=== PATIENT | male | born 1940 | race Caucasian/White ===

== ENCOUNTER → 2017-08-18 10:40 | Outpatient (CLI) | payer MEDICARE, OTHER, SELFPAY ==
[2017-08-18 11:17] LABS: Add Manual Diff / Slide Review NO; Basophils Percent Auto 0.5 % (0-2); Eosinophils Percent Auto 3.4 % (2-4); Hematocrit 41.9 % (41-53); Hemoglobin 14.1 g/dL (13.5-17.5); Lymphocytes Percent Auto 19.8 % (25-40); Mean Corpuscular HGB Conc 33.5 % (30-36); Mean Corpuscular Hemoglobin 32.3 PG (26-34); Mean Corpuscular Volume 96.5 fL (80-100); Monocytes Percent Auto 13.1 % (3-14); Neutrophils Absolute Auto 4500 /uL (3000-5900); Neutrophils Percent Auto 63.2 % (50-75); Platelet Count 195 X10^3/uL (150-400); Red Blood Cell Count 4.34 X10^6/uL (4.5-5.9); Red Cell Distribution Width 13.5 % (11.6-14.8); White Blood Cell Count 7.1 X10^3/uL (4.5-11.0)
[2017-08-18 12:00] LABS: Alanine Aminotransferase 20 IU/L (21-72); Albumin 4.1 g/dL (3.5-5.0); Albumin Globulin Ratio 1.3 (1.0-2.8); Alkaline Phosphatase 49 U/L (38-126); Aspartate Aminotransferase 25 IU/L (17-59); BUN Creatinine Ratio 22.5 (6-22); Bilirubin Total 0.5 mg/dL (0.2-1.3); Blood Urea Nitrogen 18 mg/dL (9-20); Calcium 9.6 mg/dL (8.4-10.2); Carbon Dioxide 30 mmol/L (22-32); Chloride 101 mmol/L (98-107); Estimated Glomerular Filt Rate > 60.0 mL/min (>60); Globulin 3.1 g/dL (1.7-4.1); Glucose 59 mg/dL (80-110); HEMOLYSIS < 15 (0-50); Lactate Dehydrogenase 633 U/L (313-618); Potassium 4.6 mmol/L (3.4-5.1); Sodium 140 mmol/L (137-145); Total Protein 7.2 g/dL (6.3-8.2)
== END ==
PROVIDERS: Family Provider Specialist; PCP Internal Medicine; Visit Provider Internal Medicine Hematology & Oncology
DX: C43.9 Malignant melanoma of skin, unspecified (principal); C79.49 Secondary malignant neoplasm of other parts of nervous system
CPT/HCPCS: 36415; 80053; 83615; 85025

== ENCOUNTER → 2017-09-13 11:09 | Outpatient (CLI) | payer MEDICARE, OTHER, SELFPAY ==
[2017-09-13 12:28] LABS: Estimated Glomerular Filt Rate > 60.0 mL/min (>60)
== END ==
PROVIDERS: PCP Internal Medicine; Visit Provider Radiology Radiation Oncology
DX: C79.31 Secondary malignant neoplasm of brain (principal)
CPT/HCPCS: 36415; 82565

== ENCOUNTER → 2017-09-20 10:24 | Outpatient (CLI) | payer MEDICARE, OTHER, SELFPAY ==
--- NOTE | 2017-09-20 | DI.MRI.S_ITS ---
PROCEDURE: MR HEAD/BRAIN WO/W CON INDICATIONS: MELANOMA TECHNIQUE: Noncontrast axial T1 spin echo, axial T2 fast spin echo, sagittal and axial FLAIR, coronal T2 fast spin echo, axial gradient echo, axial diffusion and ADC through the brain. After the administration of contrast, axial and coronal T1 spin echo with fat saturation through the brain. COMPARISON: [facility], MR, BRAIN W&WO CONTRAST, 05/31/2017, 9:34. [facility], MR, MR BRAIN W&WO CON, 09/14/2016, 15:03.[facility], MR, MR BRAIN W&WO CON, 08/04/2016, 19:36. [facility], MR, MR BRAINW CON, 08/04/2016, 12:34. [facility], MR, BRAIN W&WO CONTRAST, 07/20/2016, 15:11.[facility], RG, CT MAXILLOFACIAL W/O OUTSIDE FILMS, 07/19/2016, 15:31. [facility], [place], PET/CT SKULL BASE TO MID THIGH, 07/16/2016, 9:25. [facility], MR,BRAIN W&WO CONTRAST, 11/12/2016, 10:13. FINDINGS: Image quality: Excellent. CSF spaces: Basal cisterns are patent. No extra-axial fluid collections. Ventricles are normal in size and shape. Brain: Postsurgical changes compatible with resection of posterior right temporal metastatic lesion are stable. No abnormal intracranial mass or suspicious postcontrast enhancement identified in the current study. No new areas of suspicious postcontrast enhancement. Mild periventricular and subcortical white matter chronic microvascular ischemic changes stable. There is cerebral volume loss for age. There is periventricular white matter chronic small vessel ischemic change. The brainstem appears normal. Diffusion-weighted images demonstrate no acute ischemic insults. No areas of encephalomalacia. Normal intravascular flow voids are present. Skull and face: Calvarial marrow is normal in signal. Orbits appear normal. Sinuses: Sinuses and mastoids appear clear. IMPRESSION: 1. Stable examination compared to 05/31/2017. 2. No evidence of residual or recurrent posterior right temporal metastatic melanoma. 3. No new intracranial metastatic lesions identified. Dictated by: Lauren Erazo MD, PhD on 09/20/2017 at 10:45 Approved by: Lauren Erazo MD, PhD on 09/20/2017 at 11:05
--- NOTE | 2017-09-20 | DI.CT.S_ITS ---
PROCEDURE: CT SOFT TISSUE NECK WO CON INDICATIONS: MALIGNANT MELANOMA SURVEILLANCE TECHNIQUE: Non-contrast 3.0 mm axial sections acquired from the sella to the aortic arch. Additional oblique axial 3.0 mm sections acquired through the pharynx. 3 mm thick coronal and sagittal reformats were generated. For radiation dose reduction, the following was used: automated exposure control. COMPARISON: [facility], CT, CHEST/ABD/PEL WITHOUT CONTRAST, 05/19/2017, 10:15. [facility], CT, CT CHEST ABD PEL WO CON, 09/20/2017, 12:06. [facility], CT, NECK/CHEST/ABD/PEL W CONTRAST, 10/12/2016, 10:07. [facility], [place], PET/CT SKULL BASE TO MID THIGH, 11/29/2014, 11:10. FINDINGS: Image quality: Excellent. Lymph nodes: No enlarged lymph nodes seen throughout the neck. Vessels: Non-opacified vessels appear normal in caliber. Neck spaces: The oropharynx, nasopharynx, and pharynx demonstrate no mucosal lesions. The vocal cords, false vocal cords, pyriform sinuses, epiglottis, vallecula, and tongue base all appear normal. Extramucosal spaces appear unremarkable. Glands: The parotid and submandibular glands appear normal, without stones. Thyroid gland is within normal limits. Miscellaneous: Visualized brain and orbits appear normal. Reticulonodular interstitial thickening in lung apices is not significantly changed compared to prior examinations. Superficial soft tissues appear normal. Spine degenerative disc disease and facet arthropathy. IMPRESSION: 1. No evidence of metastatic disease involving the neck. 2. 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 3. Bilateral lung chronic interstitial disease. Dictated by: Lauren Erazo MD, PhD on 09/20/2017 at 15:41 Approved by: Lauren Erazo MD, PhD on 09/20/2017 at 15:56
--- NOTE | 2017-09-20 | DI.CT.S_ITS ---
PROCEDURE: CT CHEST ABD PEL WO CON INDICATIONS: MALIGNANT MELANOMA SURVEILLANCE TECHNIQUE: After the administration of oral contrast, 5 mm thick sections acquired from the lung apices to the symphysis pubis. 5 mm thick coronal and sagittal reformats acquired, with additional 7 mm coronal MIP reformats through the lungs. For radiation dose reduction, the following was used: automated exposure control, adjustment of mA and/or kV according to patient size. COMPARISON: [facility], CT, NECK/CHEST/ABD/PEL W CONTRAST, 10/12/2016, 10:07. [facility], CT, CHEST/ABD/PEL WITH CONTRAST, 11/23/2016, 10:10. [facility], CT, CHEST/ABD/PEL WITHOUT CONTRAST, 02/24/2017, 11:00. [facility], CT, CHEST/ABD/PEL WITHOUT CONTRAST, 05/19/2017, 10:15. [facility], CT, CT SOFT TISSUE NECK WO CON, 09/20/2017, 12:06. FINDINGS: Image quality: CHEST: Lungs and pleura: No acute pulmonary opacities. Chronic interstitial lung disease with predominantly peripheral honeycomb appearance associated with bronchiectasis and mild alveolitis. No pleural effusions or pneumothorax. Central and peripheral airways are patent are normal in caliber. Mediastinum: Heart size is normal. No pericardial effusion. No mediastinal adenopathy by CT size criteria. Thoracic aorta and central pulmonary arteries are normal in size. Esophagus is normal in caliber. No hiatal hernia. Chest wall: No axillary or supraclavicular adenopathy by size criteria. Thyroid gland appears normal. ABDOMEN: Solid organs: Liver is normal in size. Gallbladder shows no calcified stones. Pancreas is normal in contours. Spleen is normal in size. No adrenal nodules. Both kidneys are normal in size, without hydronephrosis or nephrolithiasis. Unchanged is a 1.4 cm exophytic hyperdense cyst on the lower pole of the left kidney, simple cysts in the right kidney including the large 9.3 cm exophytic cyst in the lower pole Peritoneum and bowel: Small and large bowel loops are normal in caliber and wall thickness. No free fluid or air. Nodes and vessels: No retroperitoneal or mesenteric adenopathy by size criteria. Aorta and inferior vena cava are normal in size. Miscellaneous: No ventral hernias. PELVIS: Genitourinary: Bladder wall thickness is normal. Prostate and seminal vesicles are enlarged. Miscellaneous: No inguinal hernias or adenopathy. Bones: No suspicious bony lesions. No vertebral body compression fractures. IMPRESSION: 1. No evidence of metastatic disease in the chest abdomen or pelvis. 2. Bilateral renal cysts appear stable. 3. Pulmonary fibrosis. Dictated by: Olu Bustamante M.D. on 09/20/2017 at 13:29 Approved by: Olu Bustamante M.D. on 09/20/2017 at 13:50
== END ==
PROVIDERS: Family Provider Internal Medicine Pulmonary Disease; PCP Internal Medicine; Visit Provider Radiology Radiation Oncology
DX: C43.9 Malignant melanoma of skin, unspecified (principal); M50.30 Other cervical disc degeneration, unspecified cervical region; M47.812 Spondylosis without myelopathy or radiculopathy, cervical region; N28.1 Cyst of kidney, acquired; J84.10 Pulmonary fibrosis, unspecified
CPT/HCPCS: 70490; 70553; 71250; 74176; A9579

== ENCOUNTER 2017-09-27 08:43 | Day surgery (SDC) | payer MEDICARE, OTHER, SELFPAY ==
--- NOTE | 2017-09-27 | PATH_ITS ---
[facility] Accession Number: [id number] . 01 Material submitted: . GE JUNCTION BIOPSY . 02 Diagnosis: Gastroesophageal Junction, Biopsy: Squamocolumnar junctional mucosa with focal specialized intestinal metaplasia; please see comment. Negative for dysplasia or malignancy. MRV/09/28/2017 . 02 Comment: The histologic findings would be consistent with Hollingsworth's esophagus in the appropriate endoscopic setting. . 02 Electronically signed: . Hugo Marroquin MD, PhD, Pathologist NPI- [id number] . 01 Gross description: . Received one formalin-filled container labeled with the patient's name and labeled GE junction are multiple less than 0.1 to 0.2 cm portions of tissue. Filtered, wrapped and entirely submitted in one cassette. ([facility] [place]:[id number]) /[facility] . 02 Pathologist provided ICD-10: K22.70 . 02 CPT . 003244 Performed at: 01 [facility] [address] [facility], [place], [place] [id number] MD Vitaliy Parham MD Phone: [phone] Performed at: 02 [facility] [address] [place], [place] [id number] MD Ameya Valentine MD Phone: [phone]
[2017-09-27 09:13] VITALS: PULSE 66; RESP 12; TEMP 37; O2SAT 99; BMI 25.3
--- NOTE | 2017-09-27 10:11 | PM.HP.1 ---
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 He underwent a fairly recent Puma fundoplication and repair of a hiatal hernia. He is here for surveillance examination of his esophagus. Patient History Medical History Brain metastasis (Acute ~07/2017) Pulmonary fibrosis (Acute) Sleep apnea with use of continuous positive airway pressure (CPAP) (Acute) Hollingsworth's esophagus (Chronic) Malignant melanoma (Chronic) Surgical History H/O hernia repair (Resolved) H/O right heart catheterization (Resolved ~11/2016) History of colonoscopy (Resolved) History of esophagogastroduodenoscopy (EGD) (Resolved) History of repair of hiatal hernia (Resolved) S/P left knee arthroscopy (Resolved) S/P right knee arthroscopy (Resolved) Family & Social History Social History: household members spouse Meds Home Medications Medication Instructions Recorded Confirmed Type [STOOL SOFTENER] 200 mg PO Q DAY #0 05/24/17 History pirfenidone [Esbriet] 801 mg PO TID #0 05/24/17 History cholecalciferol (vitamin D3) 2,000 unit PO DAILY 08/23/17 08/23/17 History [Vitamin D3] ipratropium bromide 2 spray INTRANASAL TID 08/23/17 08/23/17 History melatonin 5 mg PO BEDTIME 09/27/17 09/27/17 History multivitamin 1 tab PO DAILY 09/27/17 09/27/17 History pravastatin [Pravachol] 40 mg PO 4-6XD 09/27/17 09/27/17 History Allergies Allergy/AdvReac Type Severity Reaction Status Date / Time No Known Drug Allergies Allergy Unknown Unverified 09/27/17 09:19 Review of Systems Review of Systems All systems reviewed & are unremarkable except as noted in HPI and below Respiratory Comments: Chronic mucus production with pulmonary fibrosis thought at least in part due to silent reflux. Exam Vital Signs (past 8 hours): - 09/27/17 09:13 Temperature 98.6 F Pulse Rate 66 Respiratory Rate 12 Pulse Oximetry 99 Oxygen Delivery Method Room Air Narrative Exam Narrative: Operative gentleman in no apparent distress. His lungs are clear to auscultation. No rales or rhonchi. Heart regular rate rhythm without murmur gallop. Abdomen is soft lax nontender without mass. Patient is alert and oriented x3. Scar from his melanoma was right arm was noted. Assessment & Plan (1) Hollingsworth's esophagus: Current visit: Yes Status: Acute Plan: Assessment/Plan Narrative: Patient for surveillance examination. I have discussed the procedure with him including risks of bleeding perforation. He appears to understand wishes to proceed.
--- NOTE | 2017-09-27 10:17 | PM.PREOP ---
Pre-operative Note Interval Note Pre-op Check: Yes History & Physical exam performed today by Physician Changes: No ASA Class (for procedural sedation): III
[2017-09-27] MEDS: TETRACAINE/BENZOCAINE/BUTAMBEN (CETACAINE) BOTTLE 1 SPRAY TOP (10:27)
[2017-09-27] MEDS: LIDOCAINE 4% SOLN 50 ML 20 ML TOP (10:28)
[2017-09-27] MEDS: MIDAZOLAM 5 MG/5 ML VIAL IV (10:34)
[2017-09-27] MEDS: fentaNYL 250 MCG/5 ML INJ IV (10:35)
--- NOTE | 2017-09-27 10:43 | P.OP.ENDO_ITS ---
Operative Date/Time/Diagnoses Date of procedure: 09/27/17 Time of procedure: 10:38 Pre-op diagnosis: History of Hollingsworth's esophagus Post-op diagnosis: same Procedure & Clinicians Study performed: EGD with cold biopsy Same procedure as scheduled: Yes Indications: Surveillance Hollingsworth's esophagus Surgeon: Scotty Doe Procedure Notes SCOAP/Timeout: Performed Procedure in detail: The patient had topical anesthetic applied to oropharynx. he was placed in left lateral decubitus position and underwent IV sedation directed by the surgeon consisting of fentanyl and Versed. A bite block was inserted and the scope was advanced through it into the esophagus. The larynx/ cord structures appeared to be normal. The esophagus was unremarkable. GE junction was noted at[41 cm from the incisors]. The stomach insufflated well. There were no lesions seen in the body, antrum or at the incisura. The pyloric channel was [narrowed but patent]. The duodenum was unremarkable to the 4th part. The scope was brought back into the stomach and retroflexed. The proximal stomach[showed evidence of his prior anti reflux procedure]. The scope was straightened and brought out through the esophagus again. Multiple biopsies were taken at the GE junction. There was minimal evidence of Hollingsworth's esophagus visibly. The esophagus was compressed but not obstructed. The scope was removed and the patient tolerated the procedure well. Scope withdrawal time: Not applicable Sedation minutes: 14 Findings: Hollingsworth's esophagus (History of) and other findings (Post an anti reflux procedure) Specimen(s): other (GE junction biopsies) Complications: none Recommendations: EGD in 3 years (Surveillance of Hollingsworth's esophagus) and Other recommendation (Will send letter regarding pathology) Follow up: as needed Disposition: PACU
[2017-09-27 10:45] VITALS: PULSE 64; RESP 16; TEMP 36.5; O2SAT 96
== END 2017-09-27 11:00 | disposition home or self-care (01) ==
LOC: ENDO 08:44
PROVIDERS: Family Provider Internal Medicine Pulmonary Disease; PCP Internal Medicine; Visit Provider Specialist
PROC: 0DJ08ZZ Inspection of Upper Intestinal Tract, Via Natural or Artificial Opening Endoscopic (ICD-10-PCS; CPT 43235; principal; 2017-09-27 09:45)
DX: K22.70 Barrett's esophagus without dysplasia (principal); G47.33 Obstructive sleep apnea (adult) (pediatric)
CPT/HCPCS: 43239; 88305; 99152; J2250; J3010

== ENCOUNTER 2018-01-31 06:48 | Day surgery (SDC) | payer MEDICARE, OTHER, SELFPAY ==
[2018-01-31 07:07] VITALS: BMI 25.7
[2018-01-31 07:10] VITALS: BP 125/73; PULSE 64; RESP 18; TEMP 36.1; O2SAT 96
[2018-01-31] MEDS: LACTATED RINGERS 1,000 ML 21 ML IV (07:12)
--- NOTE | 2018-01-31 07:39 | PM.PREOP ---
Pre-operative Note Interval Note Pre-op Check: Yes History & Physical Reviewed by Physician and Yes Exam Performed Changes: No
[2018-01-31] MEDS: CEFAZOLIN 2 GM/100 ML FROZ.PIGGY IV (07:45)
--- NOTE | 2018-01-31 08:00 | SUR.OPER ---
Supine on padded OR bed, head on pillow, arms secured on padded arm boards at <90 degrees abduction, legs uncrossed, safety belt at thigh, tape over blanket over lower legs.
[2018-01-31] MEDS: BUPIVACAINE 0.5% (PF) VIAL 30 ML INJ (08:07)
[2018-01-31] MEDS: LIDOCAINE 1% W/EPI INJ 20 ML INJ (08:07)
[2018-01-31 09:28] VITALS: BP 131/64; PULSE 73; RESP 16; TEMP 36.5; O2SAT 96
[2018-01-31 09:33] VITALS: BP 127/68; PULSE 72; RESP 12; O2SAT 96
--- NOTE | 2018-01-31 09:34 | PM.OP.1 ---
Operative Date/Time/Diagnoses Date of procedure: 01/31/18 Time of procedure: 09:35 Pre-op diagnosis: Symptomatic right inguinal hernia Post-op diagnosis: other (Symptomatic right large indirect hernia) Procedure & Clinicians Procedure: Open right inguinal hernia repair with mesh Same procedure as scheduled: Yes Indications: 77-year-old male who presented with symptomatic painful intermittent right inguinal mass. Examination and evaluation were consistent with reducible hernia. Open repair with mesh was recommended. Surgeon: Kevin Cardona Click Yes if Unassisted: Yes Anesthesia Type: General Operative Notes Findings: 1. Intact right ilioinguinal nerve throughout the case 2. Testicles are normal descended position bilaterally at the conclusion of the case 3. Large chronically inflamed thickened indirect hernia sac in right inguinal canal 4. No direct hernia Closure Type: primary Specimen(s): none sent Implants & Drains: Large Pro Loop polypropylene mesh plug and patch right inguinal canal Applied: other (Mesh as above) Estimated Blood Loss (mL): 10 Blood products transfused: none Procedure in detail: After obtaining informed consent the patient was brought to the operating room placed supine on the table. After satisfactory induction of anesthesia the abdomen and genitalia were prepped and draped in usual sterile fashion. SCOAP time out was performed per standard protocol. Transverse incision was created for distance of approximately 4 cm in the lower aspect of the right inguinal region with 10 scalpel blade after infiltrating the area with a 1:1 mixture 1% lidocaine with 1:100,000 epinephrine and 0.5% plain Marcaine for postoperative analgesia. Bovie was used to achieve hemostasis and carried the dissection down through the subcutaneous tissue to the external oblique fascia. A large superficial epigastric vein was divided between hemostats and secured with 2 0 Vicryl ties. Fascia was divided in the direction of its fibers with a 15 scalpel blade followed by Metzenbaum scissors. Edges of the fascia were secured with hemostats and elevated into the operative field. Blunt dissection allowed for identification of the ileopubic tract, conjoined tendon, and rectus fascia. Spermatic cord was encircled bluntly with the surgeon's fingers followed by a Tabor drain. The ilioinguinal nerve was identified and great care was taken avoid injury to the structure throughout the entire case. Meticulous blunt dissection using DeBakey forceps was employed to skeletonize the spermatic cord thereby identifying a moderate-sized lipoma of the cord and a large indirect hernia sac. Again, findings are as above. The lipoma was excised with the Bovie and discarded. Hernia sac was found to be densely adherent to the distal cord structures and therefore the sac was opened between hemostats using Metzenbaum scissors. Surgeon's finger was inserted into the empty sac thereby allowing for better delineation of the edges of the sac. Sac was then meticulously dissected from adjacent structures using a combination of the Bovie and Metzenbaum scissors. Sac was then cross clamped just above the internal inguinal ring with hemostats, excised, discarded, and the remaining sac closed with 2 0 Vicryl suture ligature. Mesh was brought onto the operative field and soaked in saline solution. Large mesh plug was placed in the internal inguinal ring and secured circumferentially with interrupted 2 0 Vicryl suture to adjacent structures. Again, care was taken avoid injury to the spermatic cord structures. Onlay patch was placed over the floor of the inguinal canal and secured with interrupted 0 Tycron suture circumferentially. Laterally the mesh was secured to the ileal pubic tract while anteriorly it was secured to the conjoined tendon. Medially the mesh was secured to the rectus fascia. Tails of the mesh were brought around the cord and secured deep to the external oblique fascia with a single 0 Tycron suture. Mesh was approximated with an 0 Tycron suture as well to recreate the internal inguinal ring around the spermatic cord, but the residual space around the cord was noted to admit the tip of the surgeon's finger without issue. Therefore no significant strangulation of the cord was identified. Spermatic cord and ilioinguinal nerve were replaced into their usual anatomic positions. Wound was irrigated and noted to be hemostatic. Mesh was in good position. External oblique fascia was closed over the cord with a running 3 0 Vicryl suture. Subcutaneous tissue was reapproximated with interrupted 3 0 Vicryl suture as well. Skin was closed in a running subcuticular fashion with 4 0 Monocryl suture. Dermal adhesive was applied. Testicles were examined at the conclusion of the case and noted to be in good position. Anesthesia was reversed and patient extubated in the operating room. He was taken recovery in stable condition. Complications: none Condition: stable Disposition: PACU Plan for aftercare: 1. Discharge home 2. Follow up in surgery Clinic in 2 weeks
[2018-01-31 09:36] VITALS: BP 124/72; PULSE 71; RESP 14; O2SAT 95
[2018-01-31 09:42] VITALS: BP 125/79; PULSE 74; RESP 14; O2SAT 94
[2018-01-31 09:54] VITALS: BP 133/75; PULSE 66; RESP 14; TEMP 36.3; O2SAT 94
[2018-01-31] MEDS: OXYCODONE/ACETAMINOPHEN 5/325 TABLET 1 TAB PO (10:05)
== END 2018-01-31 10:29 | disposition home or self-care (01) ==
PROVIDERS: Family Provider Internal Medicine; PCP Internal Medicine; Visit Provider Surgery
PROC: (CPT 49505; principal; 2018-01-31 07:45)
DX: K40.90 Unilateral inguinal hernia, without obstruction or gangrene, not specified as recurrent (principal); G47.33 Obstructive sleep apnea (adult) (pediatric); J84.10 Pulmonary fibrosis, unspecified
CPT/HCPCS: 49505; C1781; J0690; J2405; J2704; J3010

== ENCOUNTER → 2018-03-27 13:52 | Outpatient (CLI) | payer MEDICARE, OTHER, SELFPAY ==
[2018-03-27 14:33] LABS: Add Manual Diff / Slide Review NO; Basophils Absolute Auto 100 /uL (0-100); Basophils Percent Auto 1.3 % (0-2); Eosinophils Absolute Auto 100 /uL (0-450); Eosinophils Percent Auto 1.4 % (2-4); Hematocrit 42.8 % (41-53); Hemoglobin 14.4 g/dL (13.5-17.5); Lymphocytes Absolute Auto 1100 /uL (1100-4500); Lymphocytes Percent Auto 11.4 % (25-40); Mean Corpuscular HGB Conc 33.7 % (30-36); Mean Corpuscular Hemoglobin 32.3 PG (26-34); Mean Corpuscular Volume 95.9 fL (80-100); Monocytes Absolute Auto 400 /uL (0-900); Monocytes Percent Auto 4.6 % (3-14); Neutrophils Absolute Auto 7600 /uL (1500-7000); Neutrophils Percent Auto 81.3 % (50-75); Platelet Count 220 X10^3/uL (150-400); Red Blood Cell Count 4.47 X10^6/uL (4.5-5.9); Red Cell Distribution Width 13.4 % (11.6-14.8); White Blood Cell Count 9.4 X10^3/uL (4.5-11.0)
[2018-03-27 15:08] LABS: Alanine Aminotransferase 20 IU/L (21-72); Albumin 4.4 g/dL (3.5-5.0); Albumin Globulin Ratio 1.4 (1.0-2.8); Alkaline Phosphatase 52 U/L (38-126); Aspartate Aminotransferase 26 IU/L (17-59); BUN Creatinine Ratio 23.8 (6-22); Bilirubin Total 0.4 mg/dL (0.2-1.3); Blood Urea Nitrogen 19 mg/dL (9-20); Calcium 9.8 mg/dL (8.4-10.2); Carbon Dioxide 28 mmol/L (22-32); Chloride 98 mmol/L (98-107); Estimated Glomerular Filt Rate > 60.0 mL/min (>60); Globulin 3.1 g/dL (1.7-4.1); Glucose 153 mg/dL (80-110); HEMOLYSIS < 15 (0-50); Lactate Dehydrogenase 807 U/L (313-618); Sodium 139 mmol/L (137-145); Total Protein 7.5 g/dL (6.3-8.2)
[2018-03-27 17:21] LABS: Potassium 4.5 mmol/L (3.4-5.1)
== END ==
PROVIDERS: Family Provider Internal Medicine Pulmonary Disease; PCP Internal Medicine
DX: C43.9 Malignant melanoma of skin, unspecified (principal)
CPT/HCPCS: 36415; 80053; 83615; 85025

== ENCOUNTER → 2018-03-29 11:09 | Outpatient (CLI) | payer MEDICARE, OTHER, SELFPAY ==
--- NOTE | 2018-03-29 11:11 | DI.MRI.S_ITS ---
PROCEDURE: MR HEAD/BRAIN WO/W CON INDICATIONS: surveillance TECHNIQUE: Noncontrast axial T1 spin echo, axial T2 fast spin echo, sagittal and axial FLAIR, coronal T2 fast spin echo, axial gradient echo, axial diffusion and ADC through the brain. After the administration of contrast, axial and coronal T1 spin echo with fat saturation through the brain. COMPARISON: Merged With [facility], MR, BRAIN W&WO CONTRAST, 05/31/2017, 9:34. Merged With [facility], MR, MR HEAD/BRAIN WO/W CON, 09/20/2017, 10:41. FINDINGS: Image quality: Excellent. CSF spaces: Basal cisterns are patent. No extra-axial fluid collections. Ventricles are normal in size and shape. Brain: No midline shift. No intracranial bleeds or masses. No change in postoperative sequela from prior resection of right temporal lobe lesion, and overlying craniotomy. No suspicious enhancement seen within the operative bed. There is cerebral volume loss for age. There is periventricular white matter chronic small vessel ischemic change. The brainstem appears normal. Diffusion-weighted images demonstrate no acute ischemic insults. No chronic ischemic insults. Normal intravascular flow voids are present. Skull and face: Orbits appear normal. Sinuses: Sinuses and mastoids appear clear. IMPRESSION: Overall, stable examination. No evidence of recurrent or residual tumor. Dictated by: Harrison Weber M.D. on 03/29/2018 at 14:34 Approved by: Harrison Weber M.D. on 03/29/2018 at 14:51
--- NOTE | 2018-03-29 11:54 | DI.CT.S_ITS ---
PROCEDURE: CT ABDOMEN PELVIS W CON INDICATIONS: surveillance melanoma TECHNIQUE: After the administration of oral and intravenous contrast, 5 mm thick sections acquired from the diaphragms to the symphysis. 5 mm thick coronal and sagittal reformats were performed. For radiation dose reduction, the following was used: automated exposure control, adjustment of mA and/or kV according to patient size. COMPARISON: [facility], CT, CT CHEST ABD PEL WO CON, 09/20/2017, 12:06. [facility], CT, CHEST/ABDOMEN WITH CONTRAST, 11/05/2014, 13:00. FINDINGS: Image quality: Excellent. ABDOMEN: Lung bases: Lung bases are again seen to be abnormal with a slowly progressive pulmonary fibrosis pattern with reference to the earliest available CT scanning that includes the chest, 11/05/14. Heart size is normal. Solid organs: Liver is normal in size and enhancement. Gallbladder appears normal. Biliary system is non-dilated. Pancreas enhances normally. Spleen is normal in size and enhancement. No adrenal nodules. Kidneys are normal in size and enhancement, without hydronephrosis. There is a large exophytic cyst projecting from the right lower kidney, measuring up to 8.5 cm AP and 7.1 cm transverse. Peritoneum and bowel: Stomach, small bowel, and colon loops are normal in caliber and wall thickness. No free fluid or air. Nodes and vessels: No retroperitoneal or mesenteric adenopathy. Aorta and inferior vena cava are normal in caliber. Miscellaneous: No ventral hernias. PELVIS: Genitourinary: Bladder wall thickness is normal. Miscellaneous: No inguinal hernias or adenopathy. Morphology of the internal os of the right inguinal canal suggest prior herniorrhaphy at this site. Bones: No suspicious bony lesions. No vertebral body compression fractures. IMPRESSION: 1. Slowly progressive pulmonary fibrosis pattern, with reference to the initial available CT scan from 2014 that includes the chest. No pulmonary metastatic disease is found. 2. Through the chest abdomen and pelvis a focus of mass lesion associated with the clinical history of melanoma is not found. 3. Mild soft tissue thickening and slight subcutaneous edema or scarring at the right inguinal canal, consistent with prior herniorrhaphy in that area. Dictated by: Donnie Marc M.D. on 03/29/2018 at 13:36 Approved by: Donnie Marc M.D. on 03/29/2018 at 13:42
== END ==
PROVIDERS: Family Provider Internal Medicine Pulmonary Disease; PCP Internal Medicine
DX: C43.9 Malignant melanoma of skin, unspecified (principal); C79.31 Secondary malignant neoplasm of brain; J84.10 Pulmonary fibrosis, unspecified
CPT/HCPCS: 70553; 74177; A9579; Q9967

== ENCOUNTER → 2018-05-24 11:42 | Outpatient (CLI) | payer MEDICARE, OTHER, SELFPAY ==
[2018-05-24 12:19] LABS: Add Manual Diff / Slide Review NO; Basophils Absolute Auto 0 /uL (0-100); Basophils Percent Auto 0.4 % (0-2); Eosinophils Absolute Auto 100 /uL (0-450); Eosinophils Percent Auto 0.8 % (2-4); Hematocrit 44.3 % (41-53); Hemoglobin 14.9 g/dL (13.5-17.5); Lymphocytes Absolute Auto 900 /uL (1100-4500); Lymphocytes Percent Auto 7.9 % (25-40); Mean Corpuscular HGB Conc 33.5 % (30-36); Mean Corpuscular Hemoglobin 32.1 PG (26-34); Mean Corpuscular Volume 95.9 fL (80-100); Monocytes Absolute Auto 600 /uL (0-900); Neutrophils Absolute Auto 9800 /uL (1500-7000); Neutrophils Percent Auto 85.9 % (50-75); Platelet Count 208 X10^3/uL (150-400); Red Blood Cell Count 4.62 X10^6/uL (4.5-5.9); Red Cell Distribution Width 13.8 % (11.6-14.8); White Blood Cell Count 11.4 X10^3/uL (4.5-11.0)
[2018-05-24 12:59] LABS: Alanine Aminotransferase 21 IU/L (21-72); Albumin 4.5 g/dL (3.5-5.0); Albumin Globulin Ratio 1.5 (1.0-2.8); Alkaline Phosphatase 48 U/L (38-126); Aspartate Aminotransferase 22 IU/L (17-59); BUN Creatinine Ratio 23.8 (6-22); Bilirubin Total 0.5 mg/dL (0.2-1.3); Blood Urea Nitrogen 19 mg/dL (9-20); Calcium 10.2 mg/dL (8.4-10.2); Carbon Dioxide 28 mmol/L (22-32); Chloride 99 mmol/L (98-107); Estimated Glomerular Filt Rate > 60.0 mL/min (>60); Glucose 141 mg/dL (80-110); HEMOLYSIS < 15 (0-50); Lactate Dehydrogenase 735 U/L (313-618); Sodium 138 mmol/L (137-145); Total Protein 7.5 g/dL (6.3-8.2)
== END ==
PROVIDERS: Family Provider Internal Medicine; PCP Internal Medicine; Visit Provider Internal Medicine Pulmonary Disease
DX: J84.112 Idiopathic pulmonary fibrosis (principal); Z79.899 Other long term (current) drug therapy; C43.9 Malignant melanoma of skin, unspecified
CPT/HCPCS: 36415; 80053; 83615; 85025

== ENCOUNTER → 2018-07-19 12:43 | Outpatient (CLI) | payer MEDICARE, OTHER, SELFPAY ==
[2018-07-19 13:12] LABS: Add Manual Diff / Slide Review NO; Basophils Absolute Auto 100 /uL (0-100); Basophils Percent Auto 0.5 % (0-2); Eosinophils Absolute Auto 100 /uL (0-450); Eosinophils Percent Auto 0.7 % (2-4); Hematocrit 38.8 % (41-53); Hemoglobin 12.8 g/dL (13.5-17.5); Lymphocytes Absolute Auto 600 /uL (1100-4500); Lymphocytes Percent Auto 5.9 % (25-40); Mean Corpuscular HGB Conc 32.9 % (30-36); Mean Corpuscular Hemoglobin 33.3 PG (26-34); Mean Corpuscular Volume 101.2 fL (80-100); Monocytes Absolute Auto 300 /uL (0-900); Monocytes Percent Auto 3.1 % (3-14); Neutrophils Absolute Auto 9700 /uL (1500-7000); Neutrophils Percent Auto 89.8 % (50-75); Platelet Count 212 X10^3/uL (150-400); Red Blood Cell Count 3.83 X10^6/uL (4.5-5.9); Red Cell Distribution Width 18.5 % (11.6-14.8); White Blood Cell Count 10.8 X10^3/uL (4.5-11.0)
[2018-07-19 13:24] LABS: Alanine Aminotransferase 17 IU/L (21-72); Albumin 4.2 g/dL (3.5-5.0); Albumin Globulin Ratio 1.4 (1.0-2.8); Alkaline Phosphatase 51 U/L (38-126); Aspartate Aminotransferase 25 IU/L (17-59); BUN Creatinine Ratio 32.5 (6-22); Bilirubin Total 1.1 mg/dL (0.2-1.3); Blood Urea Nitrogen 26 mg/dL (9-20); Calcium 9.7 mg/dL (8.4-10.2); Carbon Dioxide 29 mmol/L (22-32); Chloride 100 mmol/L (98-107); Estimated Glomerular Filt Rate > 60.0 mL/min (>60); Globulin 2.9 g/dL (1.7-4.1); Glucose 182 mg/dL (80-110); HEMOLYSIS < 15 (0-50); Potassium 4.5 mmol/L (3.4-5.1); Sodium 136 mmol/L (137-145); Total Protein 7.1 g/dL (6.3-8.2)
== END ==
PROVIDERS: Family Provider Internal Medicine; PCP Internal Medicine; Visit Provider Internal Medicine Pulmonary Disease
DX: C43.9 Malignant melanoma of skin, unspecified (principal); Z51.81 Encounter for therapeutic drug level monitoring
CPT/HCPCS: 36415; 80053; 85025

== ENCOUNTER → 2018-07-20 14:02 | Oncology outpatient (ONC) | payer MEDICARE, OTHER, SELFPAY ==
[2017-08-23 12:10] VITALS: BP 111/65; PULSE 59; RESP 16; TEMP 36.1; O2SAT 95
--- NOTE | 2017-08-23 12:15 | ONC.GEN.PN ---
Diagnosis (1) Malignant melanoma Diagnosis: 08/23/17 12:15 Original diagnosis in early September,, following a biopsy of a right forearm lesion. Breslow thickness 1.5. Dion level 4. No ulceration. 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 S/p surgical resection at the [facility] on 08/04/2016, followed by stereotactic radiation to the right posterior temporal lobe in mid September,. Last surveillance CT scanning on 05/19/2017 (negative for metastatic disease). Last MRI scanning of the brain on 05/31/2017 ([facility]). Known chronic pulmonary fibrosis (on routine pirfenidone). History of Present Illness History Of Present Illness: 08/23/17 12:17 Mr. Puga returns today for routine triage. My last visitation with him was on May 24. He has remained stable in the interim. His biggest complaint continues to be postnasal drip, with secondary cough and occasional dyspnea. His appetite is currently stable. He is no longer losing weight. He has actually gained 2 lb in the interim. His pulmonary fibrosis has recently been stable. He is due to have some follow-up pulmonary function testing within 4 weeks. He is also due to have a follow-up endoscopy later this month. He denies any new lumps or bumps. He is basically pain-free. His recent spirits have been good. Home Medications and Allergies Home Medications Medication Instructions Recorded Confirmed Type [STOOL SOFTENER] Q DAY #0 05/24/17 History melatonin 3 mg PO HS #0 05/24/17 History pirfenidone [Esbriet] 801 mg PO TID #0 05/24/17 History cholecalciferol (vitamin D3) 2,000 unit PO DAILY 08/23/17 08/23/17 History [Vitamin D3] ipratropium bromide 2 spray INTRANASAL TID 08/23/17 08/23/17 History Allergies Allergy/AdvReac Type Severity Reaction Status Date / Time No Known Drug Allergies Allergy Unknown Unverified 05/25/17 12:14 Exam Vital Signs: Vital Signs - 24 hr 08/23/17 12:10 Temperature 96.9 F L Pulse Rate 59 L Respiratory Rate 16 Blood Pressure 111/65 Pulse Oximetry 95 Exam: Blood pressure 111/65. Temperature 96.9?. Pulse rate 59. O2 saturation on room air was 95%. Weight was 199 lb (up 2 lb since mid May). The oropharynx was completely clear. Both lungs were clear, except for some well localized inspiratory rales at the right posterior base. The left lung base was clear. He displayed no direct percussible spinal tenderness. There was no palpable rib cage tenderness. No pathologic lymphadenopathy was noted today in the pre or postauricular, neck, chin, supraclavicular, epitrochlear or inguinal areas. His heart sounds were fine. Skin examination was completely nonrevealing for any new suspicious lesions. His abdomen was soft, nontender and without perceived hepatomegaly. There was no lower extremity fluid retention. Impression Mr. Puga looks good today. His examination is unrevealing, except for well localized rales at the right posterior base. His recent x-ray studies have shown no evidence of recurrent metastatic disease. I did make note today of his persistently elevated LDH level, which appears to be a false-positive test. Dr. Greenfield is looking at repeating this gentleman's brain MRI scan sometime in September. She will be seeing him in follow-up shortly thereafter. I suggested that Mr. Puga return to our clinic for triage in December. I wished him well.
[2018-01-03 14:29] VITALS: BP 114/63; PULSE 75; RESP 18; TEMP 36.3; O2SAT 96
--- NOTE | 2018-01-03 14:42 | ONC.PN ---
PN -Subjective Interval history: Diagnosis: Melanoma, originally T2 N1b Previous treatment: 1. Surgical resection and lymph node biopsy in September 2014 for lesion on the right forearm. 2. Brain metastasis diagnosed in July 2016 that was surgically resected 3. Stereotactic radiation to the brain finishing in September 2016. Interval history: The patient is a 77-year-old man who returns today for follow-up of metastatic melanoma. He is feeling well today and has no specific complaints. He has not noted any new aches or pains. He is not having any headaches. No focal numbness or weakness. His memory and thinking have been stable. He does have some chronic shortness of breath and dyspnea on exertion related to pulmonary fibrosis. This has been stable. He has not noted any adenopathy. Appetite and energy level have been stable. No GI complaints. He is otherwise feeling well. - Patient Self-Reported Symptoms SR ears, nose, mouth, throat issues: Cough SR respiratory issues: Cough, Shortness of breath, Mucous SR Gastrointestinal issues: Constipation SR Musculoskeletal issues: Cold hands or feet Home Medications and Allergies Home Medications Medication Instructions Recorded Confirmed Type [STOOL SOFTENER] 200 mg PO Q DAY #0 05/24/17 History pirfenidone [Esbriet] 801 mg PO TID #0 05/24/17 History cholecalciferol (vitamin D3) 2,000 unit PO DAILY 08/23/17 08/23/17 History [Vitamin D3] ipratropium bromide 2 spray INTRANASAL TID 08/23/17 08/23/17 History melatonin 5 mg PO BEDTIME 09/27/17 09/27/17 History multivitamin 1 tab PO DAILY 09/27/17 09/27/17 History pravastatin [Pravachol] 40 mg PO 4-6XD 09/27/17 09/27/17 History Allergies Allergy/AdvReac Type Severity Reaction Status Date / Time No Known Drug Allergies Allergy Unknown Unverified 09/27/17 09:19 Exam - Constitutional positive no acute distress, positive average body habitus - Routine HEENT Exam Head: Present: normocephalic, atraumatic Eye: Present: EOMI, PERRL. Absent: conjunctival icterus, scleral injection ENT: Present: mucous membranes moist, oropharynx clear - Routine Neck Exam Present: supple. Absent: lymphadenopathy, thyromegaly - Routine Chest/Breast/Axilla Exam Axillae: Absent: lymphadenopathy - Routine Respiratory Exam Present: Clear to auscultation bilaterally. Absent: rales, wheezes - Routine Cardiovascular Exam Present: RRR, S1, S2. Absent: murmur - Routine Abdominal Exam Present: soft, normoactive bowel sounds. Absent: tenderness, organomegaly - Routine Extremities Exam Absent: cyanosis, clubbing, edema - Routine Back/Spine Exam Back/Spine: Absent: paraspinal tenderness, vertebral tenderness - Routine Skin Exam Present: intact. Absent: petechiae, rash - Routine Neurological Exam Present: alert, oriented X3 - Routine Psychiatric Exam Present: normal affect, normal thought process Results - Imaging Additional studies: Procedures Replacement of Left Knee Joint with Synthetic Substitute, Cemented, Open Approach (01/14/16) Assessment and Plan (1) Malignant melanoma Current visit: No Status: Acute A 77-year-old man with a history of a melanoma metastatic to the brain. He is now little bit more than a year out from the end of his radiation. He has no symptoms to suggest recurrence or progression. He will return to clinic here in 3 months for follow-up. He will be due for a CT scan and MRI of the brain at that time.
[2018-04-04 11:14] VITALS: BP 112/59; PULSE 71; RESP 18; TEMP 36.9; O2SAT 90
--- NOTE | 2018-04-04 11:37 | P.PNONC_ITS ---
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 Surgical resection and lymph node biopsy in September 2014 for lesion on the right forearm. 2. Brain metastasis diagnosed in July 2016 that was surgically resected 3. Stereotactic radiation to the brain finishing in September 2016. Interval history: The patient is a 77-year-old man who returns today for follow-up of metastatic melanoma. Since his last visit here, he has been feeling about the same although he does feel like his pulmonary fibrosis may be getting somewhat worse. He has been bothered by some mucus production and cough. He notes some increase in dyspnea on exertion. The recent cold weather seems to have exacerba kiko his symptoms. He is not having any pain in the chest. He has not noticed any adenopathy. His appetite and energy level have been stable. No abdominal complaints. He has not noticed any new skin lesions. No headaches. No focal numbness or weakness. He did have an episode of weakness in his left hand couple days ago that resolved spontaneously. He denies any other changes in his health. His current medications include Atrovent. pirfenadone pravastatin prednisone 10 mg daily and senna His past medical history is otherwise notable for pulmonary fibrosis. - Patient Self-Reported Symptoms SR ears, nose, mouth, throat issues: Congestion, Cough SR respiratory issues: Cough, Shortness of breath, Mucous SR Cardiovascular issues: Shortness of breath with activity or lying flat SR Skin issues: Nail changes SR Gastrointestinal issues: Constipation SR Musculoskeletal issues: Cold hands or feet Home Medications and Allergies Home Medications Medication Instructions Recorded Confirmed Type docusate sodium 200 mg PO DAILY #0 05/24/17 02/22/18 History pirfenidone [Esbriet] 801 mg PO TID #0 05/24/17 02/22/18 History cholecalciferol (vitamin D3) 2,000 unit PO DAILY 08/23/17 02/22/18 History [Vitamin D3] ipratropium bromide 2 spray INTRANASAL TID 08/23/17 02/22/18 History melatonin 5 mg PO BEDTIME 09/27/17 02/22/18 History multivitamin 1 tab PO DAILY 09/27/17 02/22/18 History pravastatin [Pravachol] 40 mg PO DAILY 09/27/17 02/22/18 History docusate sodium [Colace] 100 mg PO BID #14 cap 01/31/18 02/22/18 Rx prednisone 10 mg PO DAILY 01/31/18 02/22/18 History sennosides [Senokot] 8.6 mg PO BEDTIME #10 tab 01/31/18 02/22/18 Rx Allergies Allergy/AdvReac Type Severity Reaction Status Date / Time Iodinated Contrast- Oral and AdvReac Unknown Nausea Verified 01/31/18 07:04 IV Dye Exam - Constitutional positive no acute distress, positive average body habitus - Routine HEENT Exam Head: Present: normocephalic, atraumatic Eye: Present: EOMI, PERRL. Absent: conjunctival icterus, scleral injection ENT: Present: mucous membranes moist, oropharynx clear - Routine Neck Exam Present: supple. Absent: lymphadenopathy, thyromegaly - Routine Chest/Breast/Axilla Exam Axillae: Absent: lymphadenopathy - Routine Respiratory Exam Comments: He has some crackles at the bases more so on the right than on the left. I do not hear any wheezes. - Routine Cardiovascular Exam Present: RRR, S1, S2. Absent: murmur - Routine Abdominal Exam Present: soft, normoactive bowel sounds. Absent: tenderness, organomegaly - Routine Extremities Exam Absent: cyanosis, clubbing, edema - Routine Back/Spine Exam Back/Spine: Absent: vertebral tenderness - Routine Skin Exam Present: intact. Absent: petechiae, rash - Routine Neurological Exam Present: alert, oriented X3 - Routine Psychiatric Exam Present: normal affect, normal thought process Results - Imaging Additional studies: Procedures Replacement of Left Knee Joint with Synthetic Substitute, Cemented, Open Approach (01/14/16) Assessment and Plan (1) Malignant melanoma Current visit: No Status: Acute A 77-year-old man with a history of a melanoma metastatic to the brain. He is now about a year and a half out from the end of his radiation. He has recent CT scan and MRI of the brain showed no evidence of recurrence although it appears that his pulmonary fibrosis may be worsening. He does have a follow-up with his internal communications writer tomorrow. He will return to clinic in about 3 months for follow- up. I would anticipate another CT scan in MRI in about 6 months but sooner if new symptoms arise.
[2018-07-05 14:17] VITALS: BP 134/75; PULSE 100; RESP 22; TEMP 36.4; O2SAT 86
--- NOTE | 2018-07-05 14:32 | ONC.PN ---
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 Surgical resection and lymph node biopsy in September 2014 for lesion on the right forearm. 2. Brain metastasis diagnosed in July 2016 that was surgically resected 3. Stereotactic radiation to the brain finishing in September 2016. Interval history: The patient is a 77-year-old man who returns today for follow-up of metastatic melanoma. Since his last visit here, he was on a long car ride and developed sudden onset of worsening shortness of breath as well as some swelling in his left leg. He is found to have a DVT and PE. He was started on a heparin drip and hospitalized. He did have an IVC filter placed. He reports that he had some bleeding from the venipuncture site. He also had multiple ecchymoses and some hematoma formation. His blood thinners were stopped. He was discharged from the hospital about a week ago. He notes that the shortness of breath has been stable. He has not had any pain in his chest. He has a little bit of a cough. His pulmonary a fibrosis was found to be worsening in the dose of his prednisone was increased up to 40 mg a day. He was not found to have any evidence of recurrent melanoma. He denies any other changes in his health. His current medications include Atrovent. pirfenadone pravastatin prednisone 40 mg daily and senna His past medical history is otherwise notable for pulmonary fibrosis. - Patient Self-Reported Symptoms SR ears, nose, mouth, throat issues: Congestion, Cough SR respiratory issues: Cough, Shortness of breath, Mucous SR Cardiovascular issues: Shortness of breath with activity or lying flat SR Skin issues: Nail changes SR Gastrointestinal issues: Constipation SR Musculoskeletal issues: Cold hands or feet Home Medications and Allergies Home Medications Medication Instructions Recorded Confirmed Type docusate sodium 200 mg PO DAILY #0 05/24/17 07/05/18 History cholecalciferol (vitamin D3) 2,000 unit PO DAILY 08/23/17 07/05/18 History [Vitamin D3] ipratropium bromide 2 spray INTRANASAL TID 08/23/17 07/05/18 History melatonin 5 mg PO BEDTIME 09/27/17 07/05/18 History multivitamin 1 tab PO DAILY 09/27/17 07/05/18 History pravastatin [Pravachol] 40 mg PO DAILY 09/27/17 07/05/18 History docusate sodium [Colace] 100 mg PO BID #14 cap 01/31/18 07/05/18 Rx prednisone 40 mg PO DAILY 01/31/18 07/05/18 History sennosides [Senokot] 8.6 mg PO BEDTIME #10 tab 01/31/18 07/05/18 Rx nintedanib [Ofev] 150 mg PO Q12H 07/05/18 07/05/18 History Allergies Allergy/AdvReac Type Severity Reaction Status Date / Time Iodinated Contrast- Oral and AdvReac Unknown Nausea Verified 01/31/18 07:04 IV Dye Exam Vital signs: Vital Signs Temp Pulse Resp BP Pulse Ox 07/05/18 14:17 97.6 F 100 H 22 134/75 86 L - Constitutional positive no acute distress, positive chronically ill appearing Comments: He is in a wheelchair in wearing oxygen. - Routine HEENT Exam Head: Present: normocephalic, atraumatic Eye: Present: EOMI, PERRL. Absent: conjunctival icterus, scleral injection ENT: Present: mucous membranes moist, oropharynx clear - Routine Neck Exam Present: supple. Absent: lymphadenopathy, thyromegaly - Routine Respiratory Exam Comments: His good air movement bilaterally but with crackles. I do not hear any wheezes. There is no tenderness to palpation along the chest wall. - Routine Cardiovascular Exam Present: RRR, S1, S2. Absent: murmur - Routine Abdominal Exam Present: soft, normoactive bowel sounds. Absent: tenderness, organomegaly, mass - Routine Extremities Exam Comments: He has 1+ edema on the left lower extremity. He has multiple ecchymoses on his arms. - Routine Back/Spine Exam Back/Spine: Absent: vertebral tenderness - Routine Skin Exam Present: intact, ecchymosis. Absent: rash - Routine Neurological Exam Present: alert, oriented X3 - Routine Psychiatric Exam Present: normal affect, normal thought process Results - Imaging Additional studies: Procedures Replacement of Left Knee Joint with Synthetic Substitute, Cemented, Open Approach (01/14/16) Assessment and Plan (1) Malignant melanoma Current visit: No Status: Acute A 77-year-old man with a history of a melanoma metastatic to the brain. He is now nearly 2 years out from his radiation. He has no evidence of recurrence or progression. He will return to clinic in about 6 months for follow-up. I would anticipate a CT scan in about a year but sooner should any new symptoms develop. He did have a recent PE and DVT. He has an IVC filter but is not currently on anticoagulants due to his recent bleeding. I explained that his long-term risk was greater from thrombosis then from hemorrhage. Once his health has stabilized in his bleeding risk as diminished, it would be a good idea to try and get him back on an anticoagulant.
[2018-07-19 13:19] VITALS: BP 128/79; PULSE 95; RESP 22; TEMP 36.4; O2SAT 92
--- NOTE | 2018-07-19 14:07 | ONC.PN ---
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 Surgical resection and lymph node biopsy in September 2014 for lesion on the right forearm. 2. Brain metastasis diagnosed in July 2016 that was surgically resected 3. Stereotactic radiation to the brain finishing in September 2016. Interval history: The patient is a 77-year-old man who returns today for follow-up of metastatic melanoma as well as a recent DVT and PE. Since his last visit here, he has been feeling about the same. He notes ongoing dyspnea on exertion and shortness of breath. He is able to walk short distances around his house. He is not having any pain in the chest. He has minimal cough. He does have some ongoing pain and swelling in his left leg. He has not had any further unusual bleeding or bruising. His previous ecchymosis has been resolving. He is not having any GI complaints. No nausea or vomiting. He has otherwise been feeling about the same. He did see his visual merchandising associate in [place] who recommended resuming his blood thinners sooner. His current medications include Atrovent. pirfenadone pravastatin prednisone 40 mg daily and senna His past medical history is otherwise notable for pulmonary fibrosis. - Patient Self-Reported Symptoms SR ears, nose, mouth, throat issues: Congestion, Cough SR respiratory issues: Shortness of breath, Difficulty breathing SR Cardiovascular issues: Shortness of breath with activity or lying flat SR Skin issues: Nail changes SR Gastrointestinal issues: Constipation SR Musculoskeletal issues: Cold hands or feet Home Medications and Allergies Home Medications Medication Instructions Recorded Confirmed Type docusate sodium 200 mg PO DAILY #0 05/24/17 07/05/18 History cholecalciferol (vitamin D3) 2,000 unit PO DAILY 08/23/17 07/05/18 History [Vitamin D3] ipratropium bromide 2 spray INTRANASAL TID 08/23/17 07/05/18 History melatonin 5 mg PO BEDTIME 09/27/17 07/05/18 History multivitamin 1 tab PO DAILY 09/27/17 07/05/18 History pravastatin [Pravachol] 40 mg PO DAILY 09/27/17 07/05/18 History docusate sodium [Colace] 100 mg PO BID #14 cap 01/31/18 07/05/18 Rx prednisone 40 mg PO DAILY 01/31/18 07/05/18 History sennosides [Senokot] 8.6 mg PO BEDTIME #10 tab 01/31/18 07/05/18 Rx nintedanib [Ofev] 150 mg PO Q12H 07/05/18 07/05/18 History rivaroxaban [Xarelto] 20 mg PO DAILY #30 tab 07/19/18 Rx Allergies Allergy/AdvReac Type Severity Reaction Status Date / Time Iodinated Contrast- Oral and AdvReac Unknown Nausea Verified 01/31/18 07:04 IV Dye Exam Vital signs: Vital Signs Temp Pulse Resp BP Pulse Ox 07/19/18 13:19 97.6 F 95 H 22 128/79 92 Intake and Output 07/18/18 07/19/18 07/19/18 23:59 07:59 15:59 Other: Weight 91.2 kg Patient Weight 07/19/18 23:59 Weight 91.2 kg - Constitutional positive no acute distress Comments: He is chronically ill-appearing in a wheelchair wearing oxygen. He is not further examined. Results - Imaging Additional studies: Procedures Replacement of Left Knee Joint with Synthetic Substitute, Cemented, Open Approach (01/14/16) Assessment and Plan (1) Malignant melanoma Current visit: No Status: Acute A 77-year-old man with a history of a melanoma metastatic to the brain. He is now nearly 2 years out from his radiation. He has no evidence of recurrence or progression. He will return to clinic in about 6 months for follow-up. I would anticipate a CT scan in about a year but sooner should any new symptoms develop. He did have a recent PE and DVT. He has an IVC filter but is not currently on anticoagulants due to his recent bleeding. His long-term risk for thrombosis is greater than his risk for hemorrhage. He has been clinically stable for a few weeks now and I think could reasonably safely resume anticoagulation. We discussed the options of vitamin K inhibitor such as Coumadin, subcutaneous injections with low-molecular weight heparin or oral direct thrombin inhibitor such as Xarelto or Eliquis. The Xarelto has advantage of being once daily. I did explain that the newer oral anticoagulants are slightly more effective than Coumadin with a slightly lower risk for bleeding but that difference is quite small. They do not require the monitoring the Coumadin does. They are somewhat more expensive. He would prefer 1 of the newer medications. I did give him a prescription for Xarelto 20 mg daily. He does understand that there is always some risk of bleeding with any anticoagulant. He will return to clinic in the fall as previously scheduled. 25 minutes was spent with the patient the majority in counseling.
--- NOTE | 2018-12-12 15:50 | ONC.MSW ---
*Sent bereavement card.
== END ==
PROVIDERS: Family Provider Internal Medicine; PCP Internal Medicine
DX: Z08 Encounter for follow-up examination after completed treatment for malignant neoplasm (principal); Z85.820 Personal history of malignant melanoma of skin; I26.99 Other pulmonary embolism without acute cor pulmonale; I82.409 Acute embolism and thrombosis of unspecified deep veins of unspecified lower extremity; J84.10 Pulmonary fibrosis, unspecified; Z79.01 Long term (current) use of anticoagulants
CPT/HCPCS: 36415; 80053; 85025; 99214

== ENCOUNTER → 2018-08-15 15:03 | Outpatient (CLI) | payer MEDICARE, OTHER, SELFPAY ==
[2018-08-15 16:01] LABS: Add Manual Diff / Slide Review NO; Basophils Absolute Auto 0 /uL (0-100); Basophils Percent Auto 0.2 % (0-2); Eosinophils Absolute Auto 0 /uL (0-450); Eosinophils Percent Auto 0.1 % (2-4); Hematocrit 45.9 % (41-53); Hemoglobin 14.9 g/dL (13.5-17.5); Lymphocytes Absolute Auto 700 /uL (1100-4500); Lymphocytes Percent Auto 9.5 % (25-40); Mean Corpuscular HGB Conc 32.5 % (30-36); Mean Corpuscular Hemoglobin 32.9 PG (26-34); Mean Corpuscular Volume 101.5 fL (80-100); Monocytes Absolute Auto 200 /uL (0-900); Monocytes Percent Auto 2.6 % (3-14); Neutrophils Absolute Auto 6600 /uL (1500-7000); Neutrophils Percent Auto 87.6 % (50-75); Platelet Count 221 X10^3/uL (150-400); Red Blood Cell Count 4.52 X10^6/uL (4.5-5.9); Red Cell Distribution Width 17.2 % (11.6-14.8); White Blood Cell Count 7.6 X10^3/uL (4.5-11.0)
[2018-08-15 16:34] LABS: Alanine Aminotransferase 23 IU/L (21-72); Albumin 4.4 g/dL (3.5-5.0); Albumin Globulin Ratio 1.6 (1.0-2.8); Alkaline Phosphatase 44 U/L (38-126); Aspartate Aminotransferase 24 IU/L (17-59); BUN Creatinine Ratio 22.5 (6-22); Bilirubin Total 0.7 mg/dL (0.2-1.3); Blood Urea Nitrogen 18 mg/dL (9-20); Calcium 9.9 mg/dL (8.4-10.2); Carbon Dioxide 29 mmol/L (22-32); Chloride 101 mmol/L (98-107); Estimated Glomerular Filt Rate > 60.0 mL/min (>60); Globulin 2.8 g/dL (1.7-4.1); Glucose 203 mg/dL (80-110); HEMOLYSIS < 15 (0-50); Potassium 5.2 mmol/L (3.4-5.1); Sodium 139 mmol/L (137-145); Total Protein 7.2 g/dL (6.3-8.2)
== END ==
PROVIDERS: Family Provider Internal Medicine; PCP Internal Medicine; Visit Provider Internal Medicine Pulmonary Disease
DX: Z51.81 Encounter for therapeutic drug level monitoring (principal)
CPT/HCPCS: 36415; 80053; 85025